=== PATIENT | female | born 1990 | race Caucasian/White ===

== ENCOUNTER 2016-11-13 17:38 | Emergency (ER) | payer MEDICAID | END 2016-11-13 21:06 | disposition home or self-care (01) | LOC: D.ER 17:38 | DX: B34.9 Viral infection, unspecified (principal); F17.200 Nicotine dependence, unspecified, uncomplicated ==

== ENCOUNTER 2017-01-19 16:58 | Emergency (ER) | payer OTHER ==
[2017-01-19 18:38] LABS: HCG URINE NEGATIVE (NEGATIVE)
== END 2017-01-19 19:25 | disposition home or self-care (01) ==
LOC: D.ER 16:58
PROVIDERS: Nurse Practitioner Family
DX: J20.9 Acute bronchitis, unspecified (principal); J06.9 Acute upper respiratory infection, unspecified; F17.200 Nicotine dependence, unspecified, uncomplicated

== ENCOUNTER → 2017-06-23 09:51 | Outpatient (CLI) | payer OTHER | END | disposition home or self-care (01) | LOC: D.RAD 09:51 | DX: S39.012A Strain of muscle, fascia and tendon of lower back, initial encounter (principal); M54.14 Radiculopathy, thoracic region ==

== ENCOUNTER 2017-07-15 16:19 | Emergency (ER) | payer OTHER | END 2017-07-15 17:23 | disposition home or self-care (01) | LOC: D.ER 16:19 | DX: B07.0 Plantar wart (principal); F17.200 Nicotine dependence, unspecified, uncomplicated ==

== ENCOUNTER 2017-11-16 09:50 | Emergency (ER) | payer MEDICAID | END 2017-11-16 13:40 | disposition home or self-care (01) | LOC: D.ER 09:50 | DX: J06.9 Acute upper respiratory infection, unspecified (principal); J20.9 Acute bronchitis, unspecified; F17.200 Nicotine dependence, unspecified, uncomplicated ==

== ENCOUNTER 2018-08-26 19:57 | Emergency (ER) | payer SELFPAY ==
[~2018-08-26] VITALS: Ht 162.6 cm; Wt 154.5 kg
[2018-08-26 20:13] VITALS: Ht 162.6 cm; Wt 154.5 kg
[2018-08-26 21:52] VITALS: BP 148/85
== END 2018-08-26 21:45 | disposition home or self-care (01) ==
LOC: D.ER 19:57
DX: J20.9 Acute bronchitis, unspecified (principal); R09.89 Other specified symptoms and signs involving the circulatory and respiratory systems; J34.89 Other specified disorders of nose and nasal sinuses; I10 Essential (primary) hypertension; F17.200 Nicotine dependence, unspecified, uncomplicated

== ENCOUNTER 2018-10-06 20:36 | Emergency (ER) | payer SELFPAY ==
[~2018-10-06] VITALS: Ht 162.6 cm; Wt 150.0 kg
[2018-10-06 20:48] VITALS: Ht 162.6 cm; Wt 150.0 kg
[2018-10-06 21:51] LABS: BASOPHILS 0.1 % (0-2); EOSINOPHILS 1.8 % (0-7); HEMATOCRIT 42.2 % (36.0-48.0); HEMOGLOBIN 13.9 g/dL (12-16); IMMATURE GRANULOCYTES 0.3 % (0-5); MCH 28.1 pg (26.0-34.0); MCHC 32.9 g/dL (31.0-37.0); MCV 85.4 fL (80.0-100.0); MEAN PLATELET VOLUME 11.2 fL (7.4-10.4); MONOCYTES 9.2 % (2-11); NEUTROPHILS 66.6 % (40-80); PLATELET COUNT 313 10x3/uL (130-400); RBC 4.94 10x6/uL (4.00-5.40); RDW 13.7 % (11.5-14.5); WBC 13.4 10x3/uL (4.8-10.8)
[2018-10-06 22:12] LABS: ALBUMIN 3.9 g/dL (3.4-5.0); ALKALINE PHOSPHATASE 105 U/L (46-116); ALT (SGPT) 24 U/L (10-68); BILIRUBIN - TOTAL 0.14 mg/dL (0.2-1.3); CALC OSMOLALITY 273 mosm/kg (275-300); CARBON DIOXIDE 28.3 mmol/L (21.0-32.0); CHLORIDE - SERUM 102 mmol/L (98-107); CREATININE - SERUM 0.9 mg/dL (0.6-1.3); GLUCOSE 91 mg/dL (74-106); POTASSIUM - SERUM 3.7 mmol/L (3.5-5.1); PROTEIN - SERUM 8.6 g/dL (6.4-8.2); SODIUM 136 mmol/L (136-145); UREA NITROGEN 18 mg/dL (7-18); eGFR NON AFRICAN AMERICAN 80 mL/min (90-120)
[2018-10-06 22:15] LABS: AMYLASE - SERUM 44 U/L (25-115); LIPASE 100 U/L (73-393)
[2018-10-06 22:16] LABS: TROPONIN-I < 0.017 ng/mL (0.000-0.060)
[2018-10-06 22:22] LABS: APPEARANCE HAZY (CLEAR); BILIRUBIN NEGATIVE (NEGATIVE); COLOR YELLOW (YELLOW); GLUCOSE NEGATIVE (NEGATIVE); KETONE NEGATIVE (NEGATIVE); NITRITE NEGATIVE (NEGATIVE); PROTEIN NEGATIVE (NEGATIVE); UROBILINOGEN NORMAL (NORMAL)
[2018-10-06 22:25] LABS: BACTERIA MODERATE /hpf (NONE SEEN); EPITHELIAL CELLS 0-5 /hpf (0-5); MUCUS <1+ /lpf (NONE SEEN); RED CELLS - URINE 0-5 /hpf (0-5); WHITE CELLS - URINE 25-50 /hpf (0-5)
[2018-10-06 23:33] LABS: HCG URINE NEGATIVE (NEGATIVE)
[2018-10-07] MEDS ORDERED: FLAGYL500 MG PO (00:08)
[2018-10-07] MEDS ORDERED: MACROBID100 MG PO (00:08)
[2018-10-07] MEDS ORDERED: ZOFRAN ODT4 MG/UDTAB PO (00:08)
== END 2018-10-07 01:38 | disposition home or self-care (01) ==
LOC: D.ER 20:36
PROVIDERS: Family Medicine
DX: N39.0 Urinary tract infection, site not specified (principal); R11.0 Nausea; A59.9 Trichomoniasis, unspecified; R19.7 Diarrhea, unspecified; F17.200 Nicotine dependence, unspecified, uncomplicated

== ENCOUNTER 2019-04-11 18:42 | Emergency (ER) | payer SELFPAY ==
[~2019-04-11] VITALS: Ht 162.6 cm; Wt 154.5 kg
[~2019-04-11 18:42] MED LIST: FLAGYL500 MG PO; MACROBID100 MG PO; ZOFRAN ODT4 MG/UDTAB PO
[2019-04-11 18:59] VITALS: Ht 162.6 cm; Wt 154.5 kg
[2019-04-11] MEDS ORDERED: DOXYCYCLINE HY100 M2 PO (20:16)
[2019-04-11] MEDS ORDERED: VISTARIL25 MG PO (20:16)
[2019-04-11 20:28] VITALS: BP 150/85
[2019-04-14 14:13] LABS: EHRLICHIA CHAFF IGG Negative (Neg:<1:64); EHRLICHIA CHAFF IGM Negative (Neg:<1:20); HGE IGG TITER Negative (Neg:<1:64); HGE IGM TITER Negative (Neg:<1:20)
[2019-04-15 03:08] LABS: RMSF IGM 0.58 index (0.00-0.89)
== END 2019-04-11 20:28 | disposition home or self-care (01) ==
LOC: D.ER 18:42
PROVIDERS: Family Medicine
DX: S40.861A Insect bite (nonvenomous) of right upper arm, initial encounter (principal); W57.XXXA Bitten or stung by nonvenomous insect and other nonvenomous arthropods, initial encounter; Y93.89 Activity, other specified; Y92.89 Other specified places as the place of occurrence of the external cause

== ENCOUNTER 2020-02-14 10:56 | Emergency (ER) | payer SELFPAY ==
[~2020-02-14] VITALS: Ht 165.1 cm; Wt 145.5 kg
[~2020-02-14 10:56] MED LIST changes: +BACTRIM 400-801 TAB PO; +DOXYCYCLINE HY100 M2 PO; +KEFLEX500 MG PO; +VISTARIL25 MG PO
[2020-02-14 11:00] VITALS: Ht 165.1 cm; Wt 145.5 kg
[2020-02-14 11:36] LABS: BASOPHILS 0.1 % (0-2); EOSINOPHILS 1.3 % (0-7); HEMATOCRIT 46.1 % (36.0-48.0); HEMOGLOBIN 14.6 g/dL (12-16); IMMATURE GRANULOCYTES 0.2 % (0-5); LYMPHOCYTES 25.8 % (15-50); MCH 28.1 pg (26.0-34.0); MCHC 31.7 g/dL (31.0-37.0); MCV 88.7 fL (80.0-100.0); MEAN PLATELET VOLUME 11.4 fL (7.4-10.4); MONOCYTES 8.2 % (2-11); NEUTROPHILS 64.4 % (40-80); PLATELET COUNT 358 10x3/uL (130-400); RDW 13.7 % (11.5-14.5); WBC 8.3 10x3/uL (4.8-10.8)
[2020-02-14 11:43] LABS: BILIRUBIN NEGATIVE (NEGATIVE); GLUCOSE NEGATIVE (NEGATIVE); HCG URINE NEGATIVE (NEGATIVE); KETONE NEGATIVE (NEGATIVE); NITRITE NEGATIVE (NEGATIVE); SPECIFIC GRAVITY 1.005 (1.005-1.020); UROBILINOGEN NORMAL (NORMAL)
[2020-02-14 11:46] LABS: CALC OSMOLALITY 268 mosm/kg (275-300); CALCIUM 9.2 mg/dL (8.5-10.1); CARBON DIOXIDE 25.7 mmol/L (21.0-32.0); CHLORIDE - SERUM 102 mmol/L (98-107); CREATININE - SERUM 0.8 mg/dL (0.6-1.3); GLUCOSE 99 mg/dL (74-106); POTASSIUM - SERUM 4.3 mmol/L (3.5-5.1); SODIUM 135 mmol/L (136-145); UREA NITROGEN 10 mg/dL (7-18); eGFR NON AFRICAN AMERICAN > 90 mL/min (90-120)
[2020-02-14 11:54] LABS: ALBUMIN 3.8 g/dL (3.4-5.0); ALKALINE PHOSPHATASE 119 U/L (30-120); ALT (SGPT) 22 U/L (10-68); AMYLASE - SERUM 31 U/L (25-115); BILIRUBIN - TOTAL 0.36 mg/dL (0.2-1.3); LIPASE 58 U/L (73-393); PROTEIN - SERUM 7.7 g/dL (6.4-8.2); TROPONIN-I < 0.017 ng/mL (0.000-0.060)
[2020-02-14] MEDS ORDERED: ZOFRAN ODT4 MG/UDTAB PO (13:32)
[2020-02-14] MEDS ORDERED: BENTYL 20 MG TA20 MG PO (13:32)
[2020-02-14 14:25] VITALS: BP 128/78
== END 2020-02-14 14:28 | disposition home or self-care (01) ==
LOC: D.ER 10:56
PROVIDERS: Family Medicine
DX: R50.9 Fever, unspecified (principal); A08.4 Viral intestinal infection, unspecified

== ENCOUNTER 2021-04-13 15:06 | Emergency (ER) | payer OTHER ==
[~2021-04-13] VITALS: Ht 167.6 cm; Wt 153.2 kg
[~2021-04-13 15:06] MED LIST changes: +BENTYL 20 MG TA20 MG PO
[2021-04-13 15:10] VITALS: BP 157/88; Ht 167.6 cm; Wt 153.2 kg
[2021-04-13 16:13] LABS: INFLUENZA TYPE A NEGATIVE (NEGATIVE); INFLUENZA TYPE B NEGATIVE (NEGATIVE); SARS-CoV-2 ANTIGEN NEGATIVE- SARS-COV-2 (NEGATIVE)
== END 2021-04-13 16:10 | disposition home or self-care (01) ==
LOC: D.ER 15:06
PROVIDERS: Family Medicine
DX: R43.0 Anosmia (principal); R68.83 Chills (without fever); R05 Cough; M79.10 Myalgia, unspecified site; R06.02 Shortness of breath; I10 Essential (primary) hypertension; Z72.0 Tobacco use